=== PATIENT | male | born 1965 | race Caucasian/White ===

== ENCOUNTER 2016-09-29 19:45 | Emergency (ER) | payer BC ==
[~2016-09-29 19:45] MED LIST: AUGMENTIN PO; PREVACID
[2016-09-29] MEDS ORDERED: BENAZEPRIL/HCTZ PO (19:54)
== END 2016-09-29 20:45 | disposition home or self-care (01) ==
LOC: SED 19:45
DX: T23.202A Burn of second degree of left hand, unspecified site, initial encounter (principal); T23.201A Burn of second degree of right hand, unspecified site, initial encounter; T20.27XA Burn of second degree of neck, initial encounter; I10 Essential (primary) hypertension; F17.210 Nicotine dependence, cigarettes, uncomplicated; Z79.899 Other long term (current) drug therapy; Y27.0XXA Contact with steam and hot vapors, undetermined intent, initial encounter; Y92.810 Car as the place of occurrence of the external cause
CPT/HCPCS: 16020; 99283